=== PATIENT | male | born 1940 | race Caucasian/White ===

== ENCOUNTER 2019-12-27 15:47 | Inpatient (IN) | payer MEDICARE, BC ==
[~2019-12-27] VITALS: Ht 175.3 cm; Wt 95.3 kg
[2019-12-27] MEDS ORDERED: COLACE100 MG PO (17:25)
[2019-12-27] MEDS ORDERED: SYNTHROID25 MCG PO (17:25)
[2019-12-27] MEDS ORDERED: VITAMIN B-12500 MCG PO (17:25)
[2019-12-27] MEDS ORDERED: CENTRUM MEN'S1 EACH PO (17:25)
[2019-12-27] MEDS ORDERED: OMEPRAZOLE40 MG PO (17:26)
[2019-12-27] MEDS ORDERED: VITAMIN E200 UNI1 PO (17:27)
[2019-12-27] MEDS ORDERED: COUMADIN4 MG PO (17:27)
[2019-12-27 18:21] VITALS: BP 115/73; BMI 31.0
--- NOTE | 2019-12-27 19:20 | NUR ---
PT SITTING UP IN BED. AND SON IN ROOM. DENIES NEEDS OR PAIN AT THIS TIME. BED IN LOW SIDE RAILS X2. RESP EVEN AND UNLABORED. LUNGS CLEAR. BOWEL ACTIVE X4. A/O X4. BILIARY DRAIN INTACT AND DRAINING. WILL CONTINUE TO MONITOR
[2019-12-27 22:06] VITALS: BP 115/73
--- NOTE | 2019-12-28 00:59 | NUR ---
I have reviewed this patient and I concur with the Shift Assessment completed by the Licensed Practical Nurse today this shift.
--- NOTE | 2019-12-28 03:00 | NUR ---
FLUSHED TRUMAN DRAIN WITH 10CC OF NORMAL SALINE. EMPTIED 225CC OUT OF BAG. WCTM
[2019-12-28 06:03] LABS: BASOPHILS 0.6 % (0-2); HEMOGLOBIN 12.5 g/dL (13.5-17.5); IMMATURE GRANULOCYTES 6.8 % (0-5); LYMPHOCYTES 20.5 % (15-50); MCH 30.9 pg (26.0-34.0); MCHC 33.8 g/dL (31.0-37.0); MCV 91.4 fL (80.0-100.0); MEAN PLATELET VOLUME 10.2 fL (7.4-10.4); MONOCYTES 9.1 % (2-11); PLATELET COUNT 345 10x3/uL (130-400); RBC 4.05 10x6/uL (4.20-6.10); RDW 16.9 % (11.5-14.5)
[2019-12-28 06:14] LABS: INR 1.55 (0.85-1.17); PROTIME 18.4 SECONDS (11.6-15.0)
[2019-12-28 06:18] LABS: CALC OSMOLALITY 261 mosm/kg (275-300); CALCIUM 8.1 mg/dL (8.5-10.1); CARBON DIOXIDE 23.8 mmol/L (21.0-32.0); CHLORIDE - SERUM 98 mmol/L (98-107); CREATININE - SERUM 0.8 mg/dL (0.6-1.3); GLUCOSE 94 mg/dL (74-106); POTASSIUM - SERUM 4.1 mmol/L (3.5-5.1); SODIUM 129 mmol/L (136-145); UREA NITROGEN 22 mg/dL (7-18); eGFR NON AFRICAN AMERICAN > 90 mL/min (90-120)
[2019-12-28 08:59] VITALS: BP 114/69
--- NOTE | 2019-12-28 10:00 | NUR ---
I have reviewed this patient and I concur with the Shift Assessment completed by the Licensed Practical Nurse today this shift.
--- NOTE | 2019-12-28 13:34 | NUR ---
RESTING QUIETLY IN BED A/A/OX4. DENIES ANY PAIN OR DISCOMFORT AND VOICES NO REQUESTS. BILIARY BAG IN PLACE AND DRAINING THICK GREEN LIQUID. ASSESSMENT COMPLETED AND WILL CONTINUE POC. BEDRAILS UP X 2, BED IN LOW, LOCKED POSITION AND CALL LIGHT IN REACH.
[2019-12-28 13:50] VITALS: Ht 175.3 cm; Wt 95.3 kg
--- NOTE | 2019-12-28 16:24 | NUR ---
PATIENT IS NEW TO UNIT AND WILL BE RA AT NEXT MEETING. DISCHARGE PLANS ARE FOR PATIENT TO RETURN HOME. WILL CONTINUE TO FOLLOW WITH PATIENT.
--- NOTE | 2019-12-28 19:17 | NUR ---
INTRODUCED SELF TO PT, PT STATES NO NEEDS AT THIS TIME, BED IN LOW POSITION, SIDE RAILS UP X'S 2, CALL LIGHT WITHIN REACH, WILL CONTINUE TO MONITOR.
[2019-12-28 20:20] VITALS: BP 116/67
--- NOTE | 2019-12-28 21:10 | NUR ---
NIGHTLY MEDICATION GIVEN, PT TOLERATED WELL, ASSISTED PT TO BATHROOM AND BACK TO BED VIA WALKER WITH MINIMAL ASSISTANCE, CALL LIGHT WITHIN REACH, BANDAR CONTINUE TO MONITOR.
--- NOTE | 2019-12-28 22:18 | NUR ---
FLUSHED BILI DRAIN WITH 10CC OF NS, PT TOLERATED WELL, PT STATES NO NEEEDS AT THIS TIME, RAILS UP X'S 2, BED IN LOW POSITION, CALL LIGHT WITHIN REACH, WILL CONTINUE TO MONITOR.
--- NOTE | 2019-12-29 00:03 | NUR ---
PT RESTING IN BED, RESPIRATIONS EVEN, ROOM CLEARED OF CLUTTER, BED IN LOW POSITION, SIDE RAILS UP X'S 2, CALL LIGHT WTIHIN REACH, WILL CONTINUE TO MONITOR.
--- NOTE | 2019-12-29 02:32 | NUR ---
PT RESTING QUIETLY, RESPIRATIONS EVEN, CALL LIGHT WITHIN REACH, WILL CONTINUE TO MONITOR.
--- NOTE | 2019-12-29 02:35 | NUR ---
I have reviewed this patient and I concur with the Shift Assessment completed by the Licensed Practical Nurse today this shift.
--- NOTE | 2019-12-29 05:29 | NUR ---
MORNING MEDICATION GIVEN, FLUSHED BILI DRAIN WITH 10CC OF NS, PT TOLERATED WELL, CALL LIGHT WITHIN REACH, WILL CONTINUE TO MONITOR.
[2019-12-29 06:38] LABS: HEMATOCRIT 39.8 % (42.0-54.0); HEMOGLOBIN 13.4 g/dL (13.5-17.5); MCHC 33.7 g/dL (31.0-37.0); MCV 92.1 fL (80.0-100.0); MEAN PLATELET VOLUME 9.6 fL (7.4-10.4); PLATELET COUNT 363 10x3/uL (130-400); RBC 4.32 10x6/uL (4.20-6.10); RDW 17.2 % (11.5-14.5); WBC 17.7 10x3/uL (4.8-10.8)
[2019-12-29 06:58] LABS: ALBUMIN 1.8 g/dL (3.4-5.0); ALKALINE PHOSPHATASE 372 U/L (30-120); ALT (SGPT) 332 U/L (10-68); BILIRUBIN - TOTAL 11.45 mg/dL (0.2-1.3); CALC OSMOLALITY 267 mosm/kg (275-300); CALCIUM 8.4 mg/dL (8.5-10.1); CARBON DIOXIDE 23.6 mmol/L (21.0-32.0); CHLORIDE - SERUM 100 mmol/L (98-107); CREATININE - SERUM 0.9 mg/dL (0.6-1.3); GLUCOSE 97 mg/dL (74-106); POTASSIUM - SERUM 4.8 mmol/L (3.5-5.1); PROTEIN - SERUM 6.3 g/dL (6.4-8.2); SODIUM 132 mmol/L (136-145); UREA NITROGEN 22 mg/dL (7-18); eGFR NON AFRICAN AMERICAN 86 mL/min (90-120)
[2019-12-29 07:06] LABS: BASOPHILS 1 % (0-2); EOSINOPHILS 6 % (0-7); LYMPHOCYTES 32 % (15-50); MONOCYTES 4 % (2-11); NEUTROPHILS 57 % (40-80); PLATELET ESTIMATE NORMAL
[2019-12-29 07:07] LABS: TARGET CELLS OCC; TEAR DROP CELLS 1+
[2019-12-29 07:08] LABS: INR 2.04 (0.85-1.17); PROTIME 22.7 SECONDS (11.6-15.0)
[2019-12-29 11:25] VITALS: BP 107/72
--- NOTE | 2019-12-29 19:00 | NUR ---
BEDSIDE REPORT COMPLETE. PT SITTING UP IN BED VISITING WITH FAMILY. DENIES ANY NEEDS OR PAIN. BILI DRAIN ON RUQ DRESSING C/D/I. YELLOW SKINTONE. CL LIGHT WITHIN REACH. FALL PRECAUTIONS IN PLACE. WILL CONTINUE TO MONITOR
[2019-12-29 20:00] VITALS: BP 107/73
--- NOTE | 2019-12-29 23:08 | NUR ---
PT LYING IN BED EYES CLOSED RESTING. RR EVEN AND UNLABORED. CL IN REACH
[2019-12-30 00:36] VITALS: BP 107/75
--- NOTE | 2019-12-30 03:32 | NUR ---
PT LYING IN BED EYES CLOSED RESTING COMFORTABLY. NO SIGNS OF ACUTE DISTRESS NOTED. CL IN REACH
[2019-12-30 07:14] LABS: INR 2.66 (0.85-1.17); PROTIME 27.9 SECONDS (11.6-15.0)
[2019-12-30 08:00] VITALS: BP 121/74
--- NOTE | 2019-12-30 10:13 | NUR ---
PATIENT SITTING UP IN CHAIR AT BEDSIDE AFTER WORKING WITH OCCUPATIONAL THERAPIST. CALL LIGHT WITHIN REACH. VOICES NO NEEDS AT THIS TIME. WILL CONTINUE WITH PLAN OF CARE
--- NOTE | 2019-12-30 12:57 | NUR ---
PATIENT HAS VISITORS IN ROOM AT THIS TIME.
--- NOTE | 2019-12-30 15:34 | NUR ---
THIS NURSE HELPED PATIENT WITH A SHOWER. SET UP FOR SHOWER NEEDED. PATIENT NEEDED SOME HELP WITH TAKING OFF AND PUTTING ON PANTS AND SOCKS
--- NOTE | 2019-12-30 18:55 | NUR ---
BEDSIDE REPORT COMPLETE. PT SITTING UP IN BED VISITING WITH FAMILY. DENIES ANY NEEDS OR PAIN. NO SIGNS OF ACUTE DISTRESS NOTED. BILI DRAIN SITE C/D/I. CL IN REACH. FALL PRECAUTIONS IN PLACE. WILL CONTINUE TO MONITOR
--- NOTE | 2019-12-30 20:45 | NUR ---
FLUSHED BILI DRAIN WITH 10ML SALINE.
[2019-12-30 21:00] VITALS: BP 120/73
--- NOTE | 2019-12-31 00:34 | NUR ---
PT LYING IN BED EYES CLOSED RESTING. RR EVEN AND UNLABORED. CL IN REACH
--- NOTE | 2019-12-31 05:11 | NUR ---
PT LYING IN BED SUPINE EYES CLOSED RESTING COMFORTABLY. RR EVEN AND UNLABORED. CL IN REACH
[2019-12-31 07:11] LABS: INR 3.18 (0.85-1.17)
[2019-12-31 08:00] VITALS: BP 115/73
--- NOTE | 2019-12-31 10:28 | NUR ---
PATIENT LYING IN BED AFTER SITTING UP IN A CHAIR TO EAT BREAKFAST. BED ALARM ON. CALL LIGHT WITHIN REACH. VOICES NO NEEDS. WILL CONTINUE WITH PLAN OF CARE
--- NOTE | 2019-12-31 18:39 | NUR ---
BEDSIDE REPORT COMPLETE. PT SITTING UP IN BED VISITING WITH FAMILY. DENIES ANY NEEDS OR PAIN. NO SIGNS OF ACUTE DISTRESS NOTED. CL IN REACH. FALL PRECAUTIONS IN PLACE. WILL CONTINUE TO MONITOR
[2019-12-31 20:00] VITALS: BP 116/64
--- NOTE | 2020-01-01 00:07 | NUR ---
PT LYING IN BED EYES CLOSED RESTING. RR EVEN AND UNLABORED. CL IN REACH
--- NOTE | 2020-01-01 03:22 | NUR ---
PT LYING IN BED EYES CLOSED RESTING. NO SIGNS OF ACUTE DISTRESS NOTED. CL IN REACH
[2020-01-01 06:58] LABS: BASOPHILS 0.6 % (0-2); HEMATOCRIT 34.3 % (42.0-54.0); HEMOGLOBIN 11.6 g/dL (13.5-17.5); IMMATURE GRANULOCYTES 4.1 % (0-5); LYMPHOCYTES 18.1 % (15-50); MCH 30.8 pg (26.0-34.0); MCHC 33.8 g/dL (31.0-37.0); MEAN PLATELET VOLUME 9.5 fL (7.4-10.4); NEUTROPHILS 65.2 % (40-80); PLATELET COUNT 301 10x3/uL (130-400); RBC 3.77 10x6/uL (4.20-6.10); RDW 17.1 % (11.5-14.5); WBC 10.7 10x3/uL (4.8-10.8)
--- NOTE | 2020-01-01 07:07 | NUR ---
POSITIONED ON RIGHT SIDE WITH RESP EVEN AND UNLABORED. SIDERAILS UP X 2, BED IN LOW LOCKED POSITION AND CALL LIGHT IN REACH.
[2020-01-01 07:15] LABS: INR 3.52 (0.85-1.17); PROTIME 34.6 SECONDS (11.6-15.0)
[2020-01-01 07:17] LABS: CALC OSMOLALITY 263 mosm/kg (275-300); CALCIUM 7.6 mg/dL (8.5-10.1); CARBON DIOXIDE 20.8 mmol/L (21.0-32.0); CHLORIDE - SERUM 100 mmol/L (98-107); CREATININE - SERUM 0.8 mg/dL (0.6-1.3); GLUCOSE 85 mg/dL (74-106); POTASSIUM - SERUM 4.5 mmol/L (3.5-5.1); SODIUM 131 mmol/L (136-145); UREA NITROGEN 18 mg/dL (7-18); eGFR NON AFRICAN AMERICAN > 90 mL/min (90-120)
[2020-01-01 09:48] VITALS: BP 116/75
--- NOTE | 2020-01-01 16:47 | RHP ---
PATIENT: RAHEEM ISLAS MEDICAL RECORD: [id number] ACCOUNT: [id number] [facility] [id number] : 38 ADMISSION DATE: 12/27/19 REHABILITATION HISTORY AND PHYSICAL EXAMINATION POST ADMISSION PHYSICIAN EXAMINATION POST ADMISSION PHYSICAL EXAMINATION AND HISTORY AND PHYSICAL DATE OF ADMISSION: 12/27/2019. ADMITTING DIAGNOSIS: Muscular wasting and disuse atrophy secondary to prolonged hospitalization. HISTORY OF PRESENT ILLNESS: The patient is an 79-year-old gentleman, who was admitted to the acute hospital on December 16 for painless jaundice associated with decrease in appetite and nausea. MRCP showed intrahepatic and extrahepatic biliary dilatation and dilatation of the pancreatic duct up to the pancreatic head. A discrete mass was not actually identified, but it was consistent for a possible pancreatic head mass. A CA19-9 is elevated. He had a PTC with drain placement. On December 19, he was transferred to [facility] for further workup, possible cholangiocarcinoma versus pancreatic cancer. 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 He was transferred back to [facility] on December 25. He has had a drain in place. He needs to be monitored closely. telemetry. Monitoring his blood pressure. He has got hyponatremia. He has had pain. He has been placed back on his Coumadin and needs to get back to a therapeutic level. He has got proximal muscle weakness, balance deficits, decreased activity tolerance, decreased range of motion, decreased strength, gait disturbance, limited safety awareness. He has got medical complexity secondary to all of his ongoing problems. He is at risk for fall. He has got low endurance, unsteady gait and balance, fatigues easily. He has got inability to care for himself and self-care deficits. These are all reasons that he cannot be discharged home at this time. He lives at home with his . He was completely independent with ADLs and mobility prior to this. He is currently set up for mod assist for his ADLs, mod assist for his mobility. He and his family plan for hopefully return him home at his prior level of functioning and get home health to see him during his stay. Comorbidities include acute liver failure. He has got high blood pressure, benign prostatic hypertrophy. He has got colon polyp, constipation. He has got coronary artery disease. He has got jaundice. He has got osteoarthritis, pancreatic head mass, AFib, history of DVT, elevated transaminases, painless jaundice. PAST MEDICAL HISTORY: Significant for coronary artery disease, hypertension, hypothyroidism, history of DVT and PE in the past. PAST SURGICAL HISTORY: Includes PTCA in a vein in his leg. He has had tonsillectomy. He has had cataract surgeries and a total hip. ALLERGIES: PENICILLIN AND TAMSULOSIN. CURRENT MEDICATIONS: Include warfarin 4 mg daily, vitamin D 400 units daily, B12 at 500 mcg daily, Protonix 40 mg daily, Synthroid 25 mcg daily, and Colace 100 mg b.i.d. HISTORY AND PHYSICAL [id number] RAHEEM ISLAS HABITS: No alcohol or tobacco use. FAMILY HISTORY: Noncontributory. SOCIAL HISTORY: The patient hopes to return back home and get back to his prior level of functioning. REVIEW OF SYSTEMS: GENERAL: Does complain of some weakness and fatigue. HEENT: Denies cold, cough, or congestion. CARDIOVASCULAR: Denies chest pain. PHYSICAL EXAMINATION: VITAL SIGNS: Stable, afebrile. GENERAL: A well-developed gentleman in no acute distress upon exam. HEENT: Normocephalic and atraumatic. Mucosa moist. NECK: Supple. No lymphadenopathy. LUNGS: Clear at this time with no wheeze, rhonchi, or rales. HEART: Irregular rate and rhythm. No murmurs, rubs or gallops. ABDOMEN: Soft, benign, and nondistended. Positive bowel sounds times 4. EXTREMITIES: No clubbing, cyanosis or edema. NEUROLOGIC: He does have noted proximal muscle weakness. LABORATORY DATA: White count is 15,000, H&H of 12 and 37, and platelet count was noted to be 345. His INR is 1.55. Sodium 129, potassium 4.1, BUN and creatinine of 22 and 0.8, and blood sugar is noted to be 94. ASSESSMENT: This is an 79-year-old gentleman admitted to the rehab with a working diagnosis of debility secondary to prolonged hospitalization. The patient has potential to make improvement. We will institute the following multidisciplinary therapies including, but not limited to, physical, occupational, respiratory, speech, nutritional services, prosthetics, and orthotics. Given his complex medical condition and risk for more complications, rehabilitation services cannot be provided at a lower level of care such as a skilled nurse facility. PLAN: 1. Admit to [facility] for an inpatient therapy to include the following disciplines; A. Physical therapy to improve gait, all transfer skills, and bed mobility to modified independent level. B. Occupational therapy to a modified independent level. C. Case management to assist with discharge planning and placement options. D. Nutrition to assist with nutritional needs. E. Rehabilitation nursing to assist in monitoring the patient's underlying medical conditions and to assist with any type of bowel or bladder management. 2. The patient's current medications and medical care will be continued. 3. The patient will be placed on standard fall precautions. 4. The patient's estimated length of stay is approximately 7-10 days. 5. We will discuss the patient during care team staff meeting this week. We will work on getting his Coumadin therapeutic again. I am going to go ahead and check CMPs on him on a regular basis and watch his transaminases, and we will check lipase and amylase if indicated, and I am going to see again in the a.m. TRANSINT:[id number] Voice Confirmation ID: [id number] DOCUMENT ID: [id number] HISTORY AND PHYSICAL [id number] RAHEEM ISLAS notes whether there has been none or any medical/functional change since admission: - No change since prescreen. CHARLY attests patient continues to be appropriate for IRF: - Continues to be appropriate. BARBARA ODEN MD at 1647 CC: [id number] DICTATION DATE: 12/28/19 0833 WEIGHMASTER: 12/28/19 0952 ADM IN [facility] [address] [id number]
--- NOTE | 2020-01-01 19:01 | NUR ---
GREETED PATIENT AND INTRODUCED MYSELF HIS NURSE. PATIENT IS LAYING IN BED WITH FAMILY MEMBERS AT BEDSIDE. RESPIRATIONS EVEN. NO S/S OF DISTRESS. DENIES ANY NEEDS AT THIS TIME. BEDSIDE SHIFT REPORT COMPLETE FROM OFF GOING NURSE. CALL LIGHT IN REACH.
[2020-01-01 20:41] VITALS: BP 104/66
--- NOTE | 2020-01-02 02:24 | NUR ---
PT. RESTING QUIETLY WITH EYES CLOSED. RESPIRATIONS EVEN. NO S/S OF DISTRESS. CALL LIGHT IN REACH.
[2020-01-02 06:46] LABS: INR 3.13 (0.85-1.17); PROTIME 31.7 SECONDS (11.6-15.0)
--- NOTE | 2020-01-02 13:44 | NUR ---
Nutrition Follow-up: Diet: Regular + Ensure with meals PO intake: ~75% average; reports that his appetite has "gotten better." He is drinking Ensure. Last BM: 12/31/19 x 2. WT: 210# (12/28/19), no new WT Meds noted: coumadin. Labs noted: Na 131(L) Recommend continue current diet and oral nutrition supplement. RD following.
[2020-01-02 15:02] VITALS: BP 128/77
[2020-01-02] MEDS ORDERED: MULTAQ400 MG PO (16:10)
--- NOTE | 2020-01-02 18:03 | NUR ---
PT RESTING IN BED, PT DENIES NEEDS. WCTM.
--- NOTE | 2020-01-02 19:02 | NUR ---
GREETED PATIENT AND INTRODUCED MYSELF HIS NURSE. PATIENT IS LAYING IN BED WATCHING TV AT THIS TIME. RESPIRATIONS EVEN. NO S/S OF DISTRESS. DENIES ANY NEEDS AT THIS TIME. CALL LIGHT IN REACH. BEDSIDE SHIFT REPORT COMPLETE FROM OFF GOING NURSE.
[2020-01-03 00:07] VITALS: BP 115/73
--- NOTE | 2020-01-03 01:58 | NUR ---
PT. RESTING QUIETLY IN BED WITH EYES CLOSED. RESPIRATIONS EVEN. NO S/S OF DISTRESS. CALL LIGHT IN REACH.
[2020-01-03 08:53] LABS: BASOPHILS 0.5 % (0-2); EOSINOPHILS 2.7 % (0-7); HEMATOCRIT 38.3 % (42.0-54.0); HEMOGLOBIN 12.8 g/dL (13.5-17.5); IMMATURE GRANULOCYTES 3.3 % (0-5); LYMPHOCYTES 21.6 % (15-50); MCH 30.7 pg (26.0-34.0); MCHC 33.4 g/dL (31.0-37.0); MCV 91.8 fL (80.0-100.0); MEAN PLATELET VOLUME 9.6 fL (7.4-10.4); MONOCYTES 7.5 % (2-11); NEUTROPHILS 64.4 % (40-80); RBC 4.17 10x6/uL (4.20-6.10); RDW 17.3 % (11.5-14.5); WBC 13.2 10x3/uL (4.8-10.8)
[2020-01-03 08:54] LABS: PROTIME 25.5 SECONDS (11.6-15.0)
[2020-01-03 09:08] LABS: CALC OSMOLALITY 264 mosm/kg (275-300); CALCIUM 7.9 mg/dL (8.5-10.1); CARBON DIOXIDE 23.4 mmol/L (21.0-32.0); CHLORIDE - SERUM 99 mmol/L (98-107); CREATININE - SERUM 0.8 mg/dL (0.6-1.3); GLUCOSE 109 mg/dL (74-106); POTASSIUM - SERUM 4.2 mmol/L (3.5-5.1); SODIUM 130 mmol/L (136-145); UREA NITROGEN 20 mg/dL (7-18); eGFR NON AFRICAN AMERICAN > 90 mL/min (90-120)
[2020-01-03 09:22] LABS: PLATELET COUNT 435 10x3/uL (130-400)
[2020-01-03 09:26] LABS: INR 2.36 (0.85-1.17)
[2020-01-03 09:36] VITALS: BP 112/76
--- NOTE | 2020-01-03 16:31 | NUR ---
CARE TEAM MEETING: PATIENT DAUGHTER ATTENDED THE MEETING. HER QUESTIONS AND CONCERNS WERE ADDRESSED. TENTATIVE DISCHARGE DATE IS 01/06/2020. AT DISCHARGE FOR HOME HEALTH [facility]. WILL CONTINUE TO FOLLOW WITH PATIENT.
--- NOTE | 2020-01-03 18:49 | NUR ---
GREETED PATIENT AND INTRODUCED MYSELF HIS NURSE. PATIENT IS LAYING IN BED RESTING WITH FAMILY MEMBER AT BEDSIDE. DENIES ANY NEEDS AT THIS TIME. RESPIRATIONS EVEN. NO S/S OF DISTRESS. CALL LIGHT IN REACH.
[2020-01-03 21:20] VITALS: BP 108/793
--- NOTE | 2020-01-04 01:22 | NUR ---
PT. RESTING QUIETLY WITH EYES CLOSED. RESPIRATIONS EVEN. NO S/S OF DISTRESS. CALL LIGHT IN REACH.
--- NOTE | 2020-01-04 04:05 | NUR ---
PT RESTING QUIETLY WITH EYES CLOSED. RESPIRAITONS EVEN. NO S/S OF DISTRESS. CALL LIGHT IN REACH.
[2020-01-04 08:23] LABS: HEMATOCRIT 36.3 % (42.0-54.0); HEMOGLOBIN 12.2 g/dL (13.5-17.5); MCH 31.3 pg (26.0-34.0); MCHC 33.6 g/dL (31.0-37.0); MCV 93.1 fL (80.0-100.0); MEAN PLATELET VOLUME 9.5 fL (7.4-10.4); RDW 17.4 % (11.5-14.5); WBC 10.2 10x3/uL (4.8-10.8)
[2020-01-04 08:30] LABS: PLATELET COUNT 338 10x3/uL (130-400)
--- NOTE | 2020-01-04 08:40 | NUR ---
PT AM MEDS ADMINISTERED. PT DENIES NEEDS. WCTM.
[2020-01-04 08:42] LABS: CALC OSMOLALITY 266 mosm/kg (275-300); CARBON DIOXIDE 23.5 mmol/L (21.0-32.0); CHLORIDE - SERUM 102 mmol/L (98-107); CREATININE - SERUM 0.9 mg/dL (0.6-1.3); GLUCOSE 88 mg/dL (74-106); POTASSIUM - SERUM 4.1 mmol/L (3.5-5.1); SODIUM 132 mmol/L (136-145); UREA NITROGEN 20 mg/dL (7-18); eGFR NON AFRICAN AMERICAN 86 mL/min (90-120)
[2020-01-04 09:14] LABS: INR 2.1 (0.85-1.17); PROTIME 23.3 SECONDS (11.6-15.0)
[2020-01-04 09:21] VITALS: BP 115/74
[2020-01-04 13:56] LABS: BASOPHILS 1 % (0-2); EOSINOPHILS 9 % (0-7); LYMPHOCYTES 20 % (15-50); MONOCYTES 25 % (2-11); NEUTROPHILS 39 % (40-80); PLATELET ESTIMATE NORMAL; ROULEAUX OCC
--- NOTE | 2020-01-04 17:57 | NUR ---
PT SITTING UP IN BED, EATING DINNER, DENEIS NEEDS. WCTM.
--- NOTE | 2020-01-04 18:49 | NUR ---
GREETED PATIENT AND INTRODUCED MYSELF HIS NURSE. PATIENT IS LAYING IN BED RESTING QUIETLY VISTING WITH FAMILY. RESPIRATIONS EVEN. NO S/S OF DISTRESS. DENIES ANY NEEDS AT THIS TIME. CALL LIGHT IN REACH.
[2020-01-04 22:57] VITALS: BP 123/77
--- NOTE | 2020-01-05 00:30 | NUR ---
PT. RESTING QUIETLY WITH EYES CLOSED. RESPIRATIONS EVEN. NO S/S OF DISTRESS. CALL LIGHT IN REACH.
--- NOTE | 2020-01-05 03:31 | NUR ---
PT AWAKE LAYING IN BED. DENIES ANY NEEDS AT THIS TIME. CALL LIGHT IN REACH.
--- NOTE | 2020-01-05 08:00 | NUR ---
PATIENT SITTING UP IN BED TO EAT BREAKFAST. BED ALARM ON, CALL LIGHT WITHIN REACH. VOICES NO NEEDS AT THIS TIME. WILL CONTINE WITH PLAN OF CARE
[2020-01-05 08:04] LABS: INR 1.8 (0.85-1.17); PROTIME 20.7 SECONDS (11.6-15.0)
[2020-01-05 09:52] VITALS: BP 127/79
--- NOTE | 2020-01-05 10:12 | NUR ---
PATIENTS INTO VISIT WITH PATIENT. REQUEST THAT DR ODEN CALL KULWINDER FUNG AT DR MILLER OFFICE. THIS NURSE REQUESTED PHONE NUMBER FOR [employer]G.
--- NOTE | 2020-01-05 13:15 | NUR ---
PATIENT DISCHARGING HOME WITH FAMILY IN AM. [facility] WILL PROVIDE THERAPY AT HOME. [facility] WILL DELIVER A ROLLING WALKER TO PATIENT. DR. PADRON 01/12/2020 @ 10:00. PATIENT CHOICE FORM FOR HOME HEALTH AND [facility] FORM SIGNED, AND EXPLAINED AND FILED IN CHART. DISHCARGE INSTRUCTIONS HAS BEEN FAXED TO PCP, HOME HEALTH AND WILL BE REVIEWED WITH PATIENT AND SPOUSE
--- NOTE | 2020-01-05 13:50 | NUR ---
PATIENT HELPED INTO BATHROOM. STAND BY ASST WITH WHEELED WALKER.
--- NOTE | 2020-01-05 19:36 | NUR ---
PT IS RESTING IN BED WITH EYES OPEN. ALERT AND ORIENTED X 3. DENIES ACUTE PAIN OR DISCOMFORT AT THIS TIME. PT EXCITED TO BE GOING HOME IN AM. RIGHT SIDE BILI DRAIN IS INTACT. SR'S ARE UP X 2 IN BED. CALL LIGHT AND BEDSIDE TABLE ARE WITHIN EASY REACH.
--- NOTE | 2020-01-05 22:00 | NUR ---
PT RESTING IN BED WITH EYES CLOSED. NO DISTRESS NOTED.
--- NOTE | 2020-01-06 00:01 | NUR ---
RESTING IN BED WITH EYES CLOSED.
--- NOTE | 2020-01-06 02:17 | NUR ---
I have reviewed this patient and I concur with the Shift Assessment completed by the Licensed Practical Nurse today this shift.
[2020-01-06 02:18] VITALS: BP 115/73
--- NOTE | 2020-01-06 04:52 | NUR ---
RESTING IN BED WITH EYES CLOSED.
[2020-01-06 06:58] LABS: INR 1.57 (0.85-1.17); PROTIME 18.6 SECONDS (11.6-15.0)
[2020-01-06 08:00] VITALS: BP 107/81
--- NOTE | 2020-01-06 08:30 | NUR ---
I have reviewed this patient and I concur with the Shift Assessment completed by the Licensed Practical Nurse today this shift.
--- NOTE | 2020-01-06 09:00 | NUR ---
PATIENT SITTING UP IN BED TO EAT BREAKFAST. CALL LIGHT WITHIN REACH. VOICES NO NEEDS AT THIS TIME. PATIENT TO BE DISCHARGED HOME TODAY. DISCHARGE ORDERS WRITTEN
--- NOTE | 2020-01-06 10:48 | NUR ---
PATIENTS DAUGHTER HERE TO TAKE PATIENT HOME. DISCHARGE INSTRUCTIONS GONE OVER WITH PATIENT AND DAUGHTER.
== END 2020-01-06 11:33 | disposition home health service (06) | DRG 557 ==
LOC: D.REHAB 15:47
PROVIDERS: ADMIT Emergency Medicine; ATTEND Emergency Medicine
DX: M62.50 Muscle wasting and atrophy, not elsewhere classified, unspecified site (principal); K72.00 Acute and subacute hepatic failure without coma; E87.1 Hypo-osmolality and hyponatremia; N40.0 Benign prostatic hyperplasia without lower urinary tract symptoms; I48.91 Unspecified atrial fibrillation; Z86.718 Personal history of other venous thrombosis and embolism; K59.00 Constipation, unspecified; I25.10 Atherosclerotic heart disease of native coronary artery without angina pectoris; M19.90 Unspecified osteoarthritis, unspecified site; R53.1 Weakness; K63.5 Polyp of colon; R10.13 Epigastric pain; K80.80 Other cholelithiasis without obstruction; E78.00 Pure hypercholesterolemia, unspecified